=== PATIENT | male | born 1990 | race Caucasian/White ===

== ENCOUNTER 2016-11-18 17:00 | Emergency (ER) | payer OTHER ==
[2016-11-18 17:16] VITALS: RESP 16
--- NOTE | 2016-11-18 18:15 | EDPHY ---
H & P Time Seen by Provider: 11/18/16 18:02 HPI/ROS: CHIEF COMPLAINT: Left clavicle pain post snowboarding HISTORY OF PRESENT ILLNESS: 26-year-old male visiting from [place], complaining of acute left clavicle pain after he fell snowboarding. No head injury. No paresthesia or sensory motor deficit. No midline C-spine pain. Occurred shortly prior to arrival. PHYSICAL EXAM (Prior to examination, patient consented to physical exam, hands were washed and my usual and customary physical exam procedures followed) 1) GENERAL: Well-developed, well-nourished, alert and oriented. Answering questions appropriately 2) HEAD: Normocephalic 3) HEENT: sclera anicteric 4) LUNGS: Breathing comfortably. 5) SKIN: intact. No tenting 6) MUSCULOSKELETAL: tender to palpation mid clavicle. No tenting. 7) NEUROLOGIC: Distal radial ulnar median nerve function intact. Bilateral deltoid sensation equal. DIFFERENTIAL DIAGNOSIS: in no particular order including but not limited to fracture sprain dislocation Constitutional: Initial Vital Signs Temperature (C) 36.7 C 11/18/16 17:10 Heart Rate 87 11/18/16 17:10 Respiratory Rate 16 11/18/16 17:10 Blood Pressure 123/86 H 11/18/16 17:10 O2 Sat (%) 92 11/18/16 17:10 Allergies/Adverse Reactions: cefaclor [From Ceclor] Allergy (Verified 11/18/16 17:16) ?chicken pox Home Medications: Medication Instructions Recorded Diazepam [Valium 5 MG (*)] 5 mg PO 11/18/16 MIRTAZAPINE [Remeron 7.5 mg] 7.5 mg PO HS 11/18/16 Prozoin 11/18/16 Sertraline HCl [Zoloft 25mg (*)] 25 mg PO DAILY 11/18/16 buPROPion [Wellbutrin] 100 mg PO 11/18/16 oxyCODONE/APAP 5/325 [Percocet 1 tab PO Q6 #10 tab 11/18/16 5/325] MDM/Departure - MDM Procedures: Procedure: Fracture treatment. The patient had x-rays taken and I confirmed that the patient had a fractured clavicle. An upper extremity sling was applied by ER automotive brake technician. After application of the splint I returned and re-examined the patient. The splint was adequately immobilizing the joint and distal to the splint the patient's circulation and sensation were intact. Patient shows no signs of compartment syndrome. Was given orthopedic precautions. ED Course/Re-evaluation: Re-evaluation with serial exams. Discussed his x-ray. He is not sure whether he will seek further orthopedic follow-up in [place] or in [place]. He has been given the name of on-call Orthopedic surgery and copies of his x-rays as well and usual and customary orthopedic precautions and instructions. - Depart Disposition: Home, Routine, Self-Care Clinical Impression: Closed left clavicular fracture Qualifiers: Encounter type: initial encounter Clavicle location: shaft Fracture alignment: displaced Qualified Code(s): S42.022A - Displaced fracture of shaft of left clavicle, initial encounter for closed fracture Snowboard accident Qualifiers: Encounter type: initial encounter Qualified Code(s): V00.318A - Other snowboard accident, initial encounter Condition: Good Instructions: Clavicle Fracture (ED) Additional Instructions: Return to the ER immediately if you experience discoloration, have worsening pain, numbness, tingling, or any other symptoms that concern you. If you received x-rays in the emergency department today, be advised, that ligamentous , tendon, muscular, and other non-bony injury cannot be fully ruled out. Try to keep your affected extremity elevated above the level of your chest, and keep cold packs on the affected area, for the next 48 hours. Prescriptions: oxyCODONE/APAP 5/325 [Percocet 5/325] 1 tab PO Q6 #10 tab Referrals: José Oconnell MD [Medical Doctor] - 2-3 days, call for appt. (Dr. Oconnell is orthopedic surgeon)
[2016-11-18 18:35] VITALS: BP 144/80; PULSE 79; TEMP 98.2; O2SAT 95
== END 2016-11-18 18:35 | disposition home or self-care (01) ==
DX: S42.022A Displaced fracture of shaft of left clavicle, initial encounter for closed fracture (principal); V00.311A Fall from snowboard, initial encounter; Y93.23 Activity, snow (alpine) (downhill) skiing, snowboarding, sledding, tobogganing and snow tubing
CPT/HCPCS: A4565